=== PATIENT | male | born 1985 | race African-American/Black ===

== ENCOUNTER 2019-02-01 15:23 | Emergency (ER) | payer OTHER ==
[2019-02-01] MEDS ORDERED: NS 1,000 ML IV ONE (17:30)
[2019-02-01] MEDS ORDERED: KETOROLAC 30 MG/ML VIAL (J1885) IV ONE (17:30)
[2019-02-01] MEDS ORDERED: METOCLOPRAMIDE INJ 10MG/2ML VIAL (J2765) IV ONE (17:30)
[2019-02-01 17:48] LABS: BASO % 0.5 % (0.0-1.0); EOS # 0.2 10^3/uL (0.0-0.50); EOS % 3.2 % (0.0-3.0); HEMATOCRIT 45.3 % (42.0-52.0); HEMOGLOBIN 15.6 g/dl (13.5-17.5); LYMPH % 29.7 % (24.0-44.0); MEAN CORPUSCULAR HEMOGLOBIN 31.2 pg (27.0-33.0); MEAN CORPUSCULAR HGB CONC 34.4 g/dl (32.0-36.5); MEAN CORPUSCULAR VOLUME 90.6 fl (80.0-96.0); MONO # 0.6 10^3/uL (0.0-0.8); MONO % 9.6 % (0.0-5.0); NEUTROPHILS # 3.8 10^3/uL (1.8-7.7); NEUTROPHILS % 56.8 % (36.0-66.0); PLATELET COUNT, AUTOMATED 217 10^3/uL (150-450); WHITE BLOOD COUNT 6.6 10^3/uL (4.0-10.0)
[2019-02-01] MEDS: GASTROGRAFIN SOLUTION 30ML PO SCH ×2 (18:15→18:30)
[2019-02-01 18:20] LABS: ALT/SGPT 22 U/L (12-78); AMYLASE 87 U/L (25-115); BILIRUBIN,DIRECT < 0.1 MG/DL (0.0-0.2); BILIRUBIN,TOTAL 0.3 MG/DL (0.2-1.0); BLOOD UREA NITROGEN 11 MG/DL (7-18); CALCIUM LEVEL 9.4 MG/DL (8.5-10.1); CARBON DIOXIDE LEVEL 33 MEQ/L (21-32); CHLORIDE LEVEL 103 MEQ/L (98-107); CREATININE FOR GFR 1.05 MG/DL (0.70-1.30); GLOMERULAR FILTRATION RATE > 60.0 (>60); GLUCOSE, FASTING 90 MG/DL (70-100); LIPASE 103 U/L (73-393); POTASSIUM SERUM 4.2 MEQ/L (3.5-5.1); SODIUM LEVEL 140 MEQ/L (136-145); TOTAL PROTEIN 7.7 GM/DL (6.4-8.2)
--- NOTE | 2019-02-01 19:08 | REPVR ---
EXAM: US Scrotum and US Duplex Artery and Vein, Scrotum, Complete EXAM DATE/TIME: 02/01/2019 6:03 PM CLINICAL HISTORY: 33 years old, male; Scrotum pain; Additional info: Testicular pain TECHNIQUE: Imaging protocol: Real-time ultrasound of the scrotum. Real-time duplex ultrasound scan of the arterial and venous flow of the scrotum with B-mode, color Doppler flow and spectral waveform analysis. Complete exam. COMPARISON: No relevant prior studies available. FINDINGS: Right Testicle: The right testicle measures 2.0 x 3.8 x 2.2 cm. Normal color and spectral blood flow. The arterial peak systolic velocity is 6.3 cm/s. Left Testicle: Left testicle measures 2.4 x 3.8 x 1.9 cm. Normal color and spectral blood flow. The arterial peak systolic velocity is 4.5 cm/s. Epididymides: There are right epididymal head cysts or spermatoceles measuring 0.4 and 0.7 cm. A left epididymal head cyst or spermatocele measuring 0.7 cm. Scrotum: Small simple appearing bilateral hydroceles. Bilateral varicoceles of moderate size. IMPRESSION: 1. No evidence of testicular torsion. 2. Small bilateral simple appearing hydroceles. 3. Bilateral varicoceles of moderate size. Electronically signed by: Kaylee Schulte On 02/01/2019 19:07:50 PM
--- NOTE | 2019-02-01 19:24 | REPVR ---
EXAM: US Abdomen Limited, Right Upper Quadrant EXAM DATE/TIME: 02/01/2019 6:03 PM CLINICAL HISTORY: 33 years old, male; Abdominal pain; Additional info: Right upper quadrant abdominal pain TECHNIQUE: Imaging protocol: Real-time ultrasound of the abdomen with image documentation. Examination was focused on the right upper quadrant. COMPARISON: No relevant prior studies available. FINDINGS: Liver: Unremarkable, as visualized. Gallbladder: The gallbladder is mildly contracted. A trace amount of gallbladder sludge is present. No visible shadowing stones. The sonographic Winters's was negative. Common bile duct: The common bile duct measures 3.9 mm. Pancreas: The pancreas was not visualized due to overlying bowel gas. Right kidney: The right kidney measures 9.8 cm in length. No hydronephrosis. IMPRESSION: No acute findings identified. Electronically signed by: Kaylee Schulte On 02/01/2019 19:23:59 PM
[2019-02-01 19:52] LABS: CHLAMYDIA DNA AMPLIFICATION NEGATIVE (NEGATIVE); GC DNA AMPLIFICATION NEGATIVE (NEGATIVE)
[2019-02-01 19:58] VITALS: BP 110/61
--- NOTE | 2019-02-01 20:52 | REPVR ---
EXAM: CT Abdomen and Pelvis With Contrast EXAM DATE/TIME: 02/01/2019 7:52 PM CLINICAL HISTORY: 33 years old, male; Abdominal pain; Localized; Right; Additional info: Right upper and lower quadrant abdominal pain TECHNIQUE: Imaging protocol: Axial computed tomography images of the abdomen and pelvis with intravenous contrast. Coronal and sagittal reformatted images were created and reviewed. Radiation optimization: All CT scans at this facility use at least one of these dose optimization techniques: automated exposure control; mA and/or kV adjustment per patient size (includes targeted exams where dose is matched to clinical indication); or iterative reconstruction. Contrast material: ISOVUE 370; Contrast volume: 100 ml; Contrast route: IV; COMPARISON: GALLBLADDER US 02/01/2019 5:55 PM FINDINGS: ABDOMEN: Liver: Normal. No mass. Gallbladder and bile ducts: Normal. No calcified stones. No ductal dilation. Pancreas: Unremarkable, as visualized. No ductal dilation. Spleen: Normal. No splenomegaly. Adrenals: Normal. No mass. Kidneys and ureters: Normal. No hydronephrosis. Stomach and bowel: A large volume of stool in the colon suggesting constipation. Mildly limited for assessing small bowel and pancreas in the upper abdomen given motion artifacts, effaced unopacified small bowel loops and the paucity of peritoneal fat in this patient. No evidence of bowel obstruction. No definite small bowel wall mucosal thickening. Appendix: A normal appendix is seen. PELVIS: Bladder: The bladder is incompletely distended and not well evaluated. Reproductive: Unremarkable as visualized. ABDOMEN and PELVIS: Intraperitoneal space: Normal. No free air. No significant fluid collection. Bones/joints: Mild chronic appearing anterior wedging at T11 and T12. Soft tissues: Unremarkable. Vasculature: Normal. No abdominal aortic aneurysm. Lymph nodes: Normal. No pathologically enlarged lymph nodes. IMPRESSION: A large volume of stool in the colon suggesting constipation. Electronically signed by: Kaylee Schutle On 02/01/2019 20:51:57 PM
[2019-02-01] MEDS ORDERED: [UNRECOGNIZED DRUG - OTHER] PO (21:21)
[2019-02-01] MEDS ORDERED: STOO100C PO (21:22)
[2019-02-01] MEDS ORDERED: MIRA3350 PO (21:31)
== END 2019-02-01 21:43 | disposition home or self-care (01) ==
LOC: M ED 15:23
DX: I86.1 Scrotal varices (principal); K59.00 Constipation, unspecified; R10.11 Right upper quadrant pain
CPT/HCPCS: 74177; 76705; 76870; 80048; 80076; 81001; 82150; 83605; 83690; 85025; 87491; 87591; 93976; 96361; 96374; 96375; 99284; J1885; J2765; Q9963